=== PATIENT | male | born 1995 | race Caucasian/White ===

== ENCOUNTER 2017-07-17 16:50 | Emergency (ER) | payer OTHER ==
[2017-07-17 20:32] VITALS: BP 122/70
== END 2017-07-17 20:32 | disposition home or self-care (01) ==
LOC: ED 16:50
DX: M54.9 Dorsalgia, unspecified (principal); R51 Headache; R03.0 Elevated blood-pressure reading, without diagnosis of hypertension; V49.9XXA Car occupant (driver) (passenger) injured in unspecified traffic accident, initial encounter; Y93.89 Activity, other specified; Y99.8 Other external cause status; Y92.89 Other specified places as the place of occurrence of the external cause
CPT/HCPCS: Q0162